=== PATIENT | female | born 1955 | race Caucasian/White ===

== ENCOUNTER 2020-12-26 15:17 | Outpatient (REF) | payer MEDICARE, MEDICAID, SELFPAY ==
--- NOTE | ~2020-12-26 | XR_ITS ---
EXAMINATION: BILATERAL KNEE X-RAY CLINICAL INFORMATION: Pain COMPARISON: None TECHNIQUE: 3 views of each knee FINDINGS: Left: Bone alignment is normal. No fracture or dislocation is seen. There is arthritis at the patellofemoral and femoral tibial joints with joint space narrowing and osteophyte formation. There is no joint effusion. Right: Bone alignment is normal. No fracture or dislocation is seen. There is arthritis at the lateral femoral tibial and patellofemoral joints with joint space narrowing and osteophyte formation. There is no joint effusion. XR/XR knee RT 3V IMPRESSION: Bilateral arthritis.
--- NOTE | ~2020-12-26 | XR_ITS ---
EXAMINATION: BILATERAL KNEE X-RAY CLINICAL INFORMATION: Pain COMPARISON: None TECHNIQUE: 3 views of each knee FINDINGS: Left: Bone alignment is normal. No fracture or dislocation is seen. There is arthritis at the patellofemoral and femoral tibial joints with joint space narrowing and osteophyte formation. There is no joint effusion. Right: Bone alignment is normal. No fracture or dislocation is seen. There is arthritis at the lateral femoral tibial and patellofemoral joints with joint space narrowing and osteophyte formation. There is no joint effusion. XR/XR knee LT 3V IMPRESSION: Bilateral arthritis.
--- NOTE | ~2020-12-26 | XR_ITS ---
EXAMINATION: XR HIP, RIGHT CLINICAL INFORMATION: Pain COMPARISON: None TECHNIQUE: Two views of the right hip. FINDINGS: Bone alignment is normal. No fracture or dislocation is seen. There is moderate to severe arthritis of the right hip joint with joint space narrowing, osteophyte formation and subchondral cyst formation. Mild cortical thickening or buttressing of the medial femoral neck. Soft tissues are unremarkable. XR/XR hip RT min 2V IMPRESSION: Moderate to severe arthritis.
[2020-12-26 16:40] LABS: MANUAL DIFF FLAG NO
[2020-12-26 16:51] LABS: Basophils Absolute Auto 0.1 X10*3/uL (0.0-0.2); Basophils Percent Auto 0.6 % (0-2); Eosinophils Absolute Auto 0.1 X10*3/uL (0.0-0.4); Eosinophils Percent Auto 0.9 % (0-4); Hematocrit 44.8 % (37-47); Hemoglobin 14.7 g/dl (12.0-16.0); Imm Gran Abs Auto 0.02 X10*3/uL (0.00-0.03); Imm Gran Pct Auto 0.2 % (0.0-0.4); Lymphocytes Absolute Auto 2.9 X10*3/uL (1.2-4.9); Lymphocytes Percent Auto 33.1 % (20-40); Mean Corpuscular HGB Conc 32.8 g/dl (31.0-35.0); Mean Corpuscular Hemoglobin 30.7 pg (27.0-33.0); Mean Corpuscular Volume 93.5 fL (80-98); Mean Platelet Volume 10.3 fL (9.4-12.3); Monocytes Absolute Auto 0.7 X10*3/uL (0.1-1.2); Monocytes Percent Auto 8.5 % (2-11); Neutrophils Absolute Auto 4.9 X10*3/uL (2.0-8.3); Neutrophils Percent Auto 56.7 % (45-73); Platelet Count 357 X10*3/uL (160-400); Red Blood Count 4.79 X10*6/uL (4.20-5.50); Red Cell Distribution Width 13.3 % (11.0-16.0); White Blood Count 8.7 X10*3/uL (4.8-10.8)
[2020-12-26 17:07] LABS: Alanine Aminotransferase 22 U/L (0-31); Albumin Level 4.6 g/dL (3.5-5.0); Alkaline Phosphatase 77 U/L (39-117); Anion Gap 16 (12-20); Aspartate Amino Transferase 26 U/L (5-31); Bilirubin Total 0.5 mg/dL (0.0-1.0); Blood Urea Nitrogen 17 mg/dL (9-16); C Reactive Protein 0.66 mg/dL (< or = 0.50); Calcium 9.3 mg/dL (8.4-10.2); Carbon Dioxide 29 mmol/L (22-29); Chloride 99 mmol/L (96-108); Estimated Glomerular Filt Rate > 60; Glucose Random 110 mg/dL (60-115); Rheumatoid Factor < 15.0 IU/mL (<15.0); Sodium 140 mmol/L (135-145); Total Protein 7.7 g/dL (6.5-8.0)
[2020-12-26 18:00] LABS: Erythrocyte Sedimentation Rate 16 MM/HR (0-20)
[2020-12-28 03:07] LABS: Lyme Abs Screen <0.90 index
[2021-01-01 12:18] LABS: Cyclic Citrullinated Peptide <16 UNITS
[2021-01-02 11:52] LABS: Vitamin D 25-OH, D2 53 ng/mL; Vitamin D 25-OH, D3 12 ng/mL; Vitamin D 25-OH, Total 65 ng/mL (30-100)
== END 2020-12-26 15:18 | disposition home or self-care (01) ==
LOC: HO.LAB 15:17
PROVIDERS: PCP Internal Medicine; Referring Provider Internal Medicine; Visit Provider Student in an Organized Health Care Education/Training Program
DX: M25.50 Pain in unspecified joint (principal)
CPT/HCPCS: 36415; 73502; 73562; 80053; 82306; 85025; 85652; 86140; 86200; 86431; 86618; 99202

== ENCOUNTER → 2021-01-28 12:36 | Outpatient (BNVA) | payer MEDICARE, MEDICAID, SELFPAY | PROVIDERS: Visit Provider Student in an Organized Health Care Education/Training Program | DX: M25.50 Pain in unspecified joint (principal); M16.11 Unilateral primary osteoarthritis, right hip | CPT/HCPCS: 99212 ==

== ENCOUNTER 2021-02-05 08:00 | Outpatient (REF) | payer MEDICARE, SELFPAY ==
--- NOTE | ~2021-02-05 | XR_ITS ---
EXAMINATION: XR PELVIS CLINICAL INFORMATION: Hip pain COMPARISON: December 26, 2020 TECHNIQUE: AP view of the pelvis. FINDINGS: There is no evidence of acute fracture or diastases of the pelvis. No evidence of sacroiliac joint widening or fusion. No destructive bony lesions are evident. There is severe degenerative joint disease of the right hip with loss of the hip joint space superiorly with marginal sclerosis and subchondral cyst formation. There is cortical thickening seen about the medial aspect of the right femoral neck. There is mild joint space narrowing involving the left hip. XR/XR pelvis 1-2V IMPRESSION: No evidence of acute fracture or diastases of the pelvis. Severe degenerative joint disease involving the right hip.
== END 2021-02-05 08:01 | disposition home or self-care (01) ==
LOC: HO.HOSX 08:00
PROVIDERS: Visit Provider Orthopaedic Surgery
DX: M16.11 Unilateral primary osteoarthritis, right hip (principal); M25.551 Pain in right hip; J44.9 Chronic obstructive pulmonary disease, unspecified; I26.99 Other pulmonary embolism without acute cor pulmonale; I82.409 Acute embolism and thrombosis of unspecified deep veins of unspecified lower extremity
CPT/HCPCS: 72170; 99202

== ENCOUNTER → 2021-04-27 11:01 | Outpatient (BNVA) | payer MEDICARE, MEDICAID, SELFPAY | PROVIDERS: PCP Internal Medicine; Visit Provider Orthopaedic Surgery | DX: Z01.812 Encounter for preprocedural laboratory examination (principal); Z01.810 Encounter for preprocedural cardiovascular examination ==

== ENCOUNTER → 2021-05-28 11:26 | Outpatient (BNVA) | payer MEDICARE, MEDICAID, SELFPAY | PROVIDERS: PCP Internal Medicine; Visit Provider Physician Assistant | DX: Z01.818 Encounter for other preprocedural examination (principal); M16.11 Unilateral primary osteoarthritis, right hip; M81.0 Age-related osteoporosis without current pathological fracture; E78.00 Pure hypercholesterolemia, unspecified; I10 Essential (primary) hypertension; F11.99 Opioid use, unspecified with unspecified opioid-induced disorder; Z99.81 Dependence on supplemental oxygen; Z88.8 Allergy status to other drugs, medicaments and biological substances; Z87.891 Personal history of nicotine dependence | CPT/HCPCS: 99212 ==

== ENCOUNTER 2021-06-02 10:55 | Inpatient (IN) | payer MEDICARE, MEDICAID, SELFPAY ==
--- NOTE | 2021-05-05 14:26 | ECG_ITS ---
Test Reason : PREOP Blood Pressure : / mmHG Vent. Rate : 073 BPM Atrial Rate : 073 BPM P-R Int : 134 ms QRS Dur : 096 ms QT Int : 404 ms P-R-T Axes : 050 008 039 degrees QTc Int : 445 ms Normal sinus rhythm Low voltage QRS Borderline ECG No previous ECGs available Referred By: Benito Felton Electronically Signed By:Ash Trujillo
[2021-05-05 14:48] LABS: MANUAL DIFF FLAG NO
[2021-05-05 14:52] LABS: Basophils Absolute Auto 0.1 X10*3/uL (0.0-0.2); Basophils Percent Auto 0.8 % (0-2); Eosinophils Absolute Auto 0.1 X10*3/uL (0.0-0.4); Eosinophils Percent Auto 1.2 % (0-4); Hematocrit 43.2 % (37-47); Hemoglobin 13.7 g/dl (12.0-16.0); Imm Gran Abs Auto 0.02 X10*3/uL (0.00-0.03); Imm Gran Pct Auto 0.3 % (0.0-0.4); Lymphocytes Absolute Auto 2.2 X10*3/uL (1.2-4.9); Lymphocytes Percent Auto 29.7 % (20-40); Mean Corpuscular HGB Conc 31.7 g/dl (31.0-35.0); Mean Corpuscular Hemoglobin 30.2 pg (27.0-33.0); Mean Corpuscular Volume 95.4 fL (80-98); Mean Platelet Volume 9.7 fL (9.4-12.3); Monocytes Absolute Auto 0.8 X10*3/uL (0.1-1.2); Monocytes Percent Auto 10.6 % (2-11); Neutrophils Absolute Auto 4.2 X10*3/uL (2.0-8.3); Neutrophils Percent Auto 57.4 % (45-73); Platelet Count 321 X10*3/uL (160-400); Red Blood Count 4.53 X10*6/uL (4.20-5.50); Red Cell Distribution Width 13.8 % (11.0-16.0); White Blood Count 7.3 X10*3/uL (4.8-10.8)
[2021-05-05 15:40] LABS: Anion Gap 14 (12-20); Blood Urea Nitrogen 17 mg/dL (9-16); Calcium 9.6 mg/dL (8.4-10.2); Carbon Dioxide 31 mmol/L (22-29); Chloride 99 mmol/L (96-108); Estimated Glomerular Filt Rate > 60; Glucose Random 101 mg/dL (60-115); Potassium 4.1 mmol/L (3.3-5.1); Sodium 140 mmol/L (135-145)
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
[2021-05-26 11:47] VITALS: BP 134/71; PULSE 78; RESP 16; O2SAT 94; BMI 36.6
[2021-05-26 14:20] LABS: MRSA Nasal PCR NEGATIVE (Negative); SA Nasal PCR NEGATIVE (Negative)
[2021-06-02] VITALS (10 sets, daily range): BP systolic 88–147; BP diastolic 48–71; PULSE 66–100; RESP 16–20; TEMP 36.4–36.7; O2SAT 93–100
--- NOTE | ~2021-06-02 | XR_ITS ---
EXAMINATION: XR PELVIS CLINICAL INFORMATION: Post right hip replacement COMPARISON: Previous x-ray January 2021 TECHNIQUE: AP view of the pelvis. FINDINGS: There is a new right hip replacement in satisfactory position. No fracture or dislocation is seen. There is mild arthritis at the left hip joint. Bones of the pelvis are unremarkable. Soft tissues are unremarkable. XR/XR pelvis 1-2V IMPRESSION: Satisfactory appearance of right hip replacement.
--- NOTE | ~2021-06-02 | XR_ITS ---
EXAMINATION: XR HIP, RIGHT WITH PELVIS CLINICAL INFORMATION: Fall, trauma. History total hip arthroplasty. COMPARISON: Radiographs pelvis 06/02/2021 and 02/05/2021 TECHNIQUE: 2 views of the pelvis are obtained along with 3 views right hip in AP and crosstable lateral x2 projections. FINDINGS: There has been prior right hip arthroplasty. The hardware is intact and unchanged in alignment. There is no fracture or dislocation or destructive process. Small short linear ossific density medial side proximal right femur was present on prior radiograph 06/02/2021. The SI joints and pubis show no diastases. The bony pelvis appears intact with no fracture. There are degenerative changes again present left hip with joint narrowing and mild subchondral sclerosis and spurring. XR/XR hip RT w PEL1V IMPRESSION: 1. No fracture or dislocation. 2. Postsurgical changes right hip, stable.
[2021-06-02 11:20] LABS: Prothrombin Time 11.7 SEC (9.9-13.0)
[2021-06-02 11:31] LABS: COVID-19 Test Negative (Negative)
[2021-06-02] MEDS: Lactated Ringers 1,000 ML 100 ML IVCONT (11:52)
--- NOTE | 2021-06-02 12:23 | MHC.SHP ---
Pre-Procedural Eval Section A Date of Service: 06/02/21 The patient is an INPATIENT: No Changes since office visit: Yes Patient answered all questions; No Cold of Flu in the past 2 weeks, No New Medical Problems and No Changes in Medication The History & Physical has been completed within 30 days and I have reviewed it.: Yes Section B Chief Complaint: Right total hip arthroplasty Allergies: Allergies Allergy/AdvReac Type Severity Reaction Status Date / Time adhesive tape Allergy Blister Verified 06/02/21 10:58 Plan I have reviewed the history and physical and performed a pertinent physical examination on my patient. No changes have occurred unless specified.
--- NOTE | 2021-06-02 14:37 | PM.OP ---
Brief Operative Note Date of Service: 06/02/21 Pre-op diagnosis: right hip OA Post-op diagnosis: same Procedure: Right MEGAN Implants: Jose F trident2 # 52 with 20 deg liner Jose F accolade2 #4 132 deg with +0 36 ceramic head Surgeon: Benito Felton MD Anesthesia: spinal Was an Propulsion Engineer used for this Procedure?: Yes Propulsion Engineer: Aj Richmond Estimated blood loss (mL): 200 IV fluids (mL): 1,000 Pathology: other Condition: stable Disposition: PACU
[2021-06-02] MEDS: Dextrose 5 % and 0.45 % NaCl 1,000 ML 80 ML IVCONT (15:41)
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
[2021-06-02] MEDS: oxyCODONE HCl Immed Release 5 MG TABLET 10 MG PO (17:12)
[2021-06-02] MEDS: HYDROmorphone HCl 0.5 MG/0.5 ML SYRINGE 0.25 MG IVPUSH ×2 (18:43→23:17)
[2021-06-02] MEDS: Warfarin Sodium 5 MG TABLET PO (18:43)
[2021-06-02] MEDS: ceFAZolin Sodium/Dextrose,Iso 2 GM/50 ML PIGGYBACK IV (19:21)
[2021-06-02] MEDS: Buprenorphine/Naloxone 8/2 mg FILM 1 FILM SUBLINGUAL (20:41)
[2021-06-02] MEDS: ALPRAZolam 0.5 MG TABLET 2 MG PO (20:41)
[2021-06-02] MEDS: Celecoxib 200 MG CAPSULE PO (20:41)
[2021-06-02] MEDS: Docusate Sodium 100 MG CAPSULE PO (20:41)
[2021-06-02] MEDS: oxyCODONE HCl ER 10 MG TAB.ER.12H PO (20:41)
[2021-06-03] VITALS (9 sets, daily range): BP systolic 100–146; BP diastolic 58–86; PULSE 63–100; RESP 16–19; TEMP 36.2–37.6; O2SAT 92–97
[2021-06-03] MEDS: HYDROmorphone HCl 0.5 MG/0.5 ML SYRINGE 0.25 MG IVPUSH ×2 (03:12→07:17)
[2021-06-03] MEDS: Dextrose 5 % and 0.45 % NaCl 1,000 ML 80 ML IVCONT (04:36)
[2021-06-03] MEDS: oxyCODONE HCl Immed Release 5 MG TABLET 10 MG PO ×3 (05:51→15:07)
[2021-06-03 07:18] LABS: MANUAL DIFF FLAG NO
--- NOTE | 2021-06-03 07:24 | PM.PNORT ---
Subjective Subjective Date of Service: 06/03/21 Interval history: POD 1 RT MEGAN No overnight events, resting in bed, has been out of bed with PT Denies cp, sob, palpitations. No concerns Physical Exam Vital Signs: Vital Signs: Last Vital Signs Temp 98.2 F 06/03/21 03:22 Pulse 93 06/03/21 03:22 Resp 18 06/03/21 03:22 BP 117/61 06/03/21 03:22 Pulse Ox 97 06/03/21 03:22 Body Mass Index 36.6 Const: General: cooperative, healthy appearing and no acute distress Resp: Effort & Inspection: normal respiratory effort and able to speak in complete sentences Cardio: Rate: regular rate Peripheral pulses: Peripheral pulses 2+ throughout GI: Palpation (GI): Soft to palpation Skin: General skin exam: no rashes or lesions noted Extrem: Other: bandage clean dry and intact. No erythema or effusion. Calf supple nontender. Neurovascularly intact. Procedures Date of Service Date of Service: 06/03/21 Progress Note: A&P Assessment and plan (1) History of total right hip replacement: Status: Acute Assessment and Plan: Continue pain mgmnt Resume coumadin begin PT for RT MEGAN Dispo planning-Pending PT eval, pain mgmnt Fall Risk Details Current Medications: Current Medications Generic Name Dose Route Start Last Admin Trade Name Erlinq PRN Reason Stop Dose Admin Acetaminophen 650 mg 06/02/21 16:30 Acetaminophen 325 Mg Tablet PO Q6H PRN Pain, Mild (Pain Scale 1-3) Albuterol Sulfate 2 puff 06/02/21 17:43 Albuterol Sulfate 90 Mcg 8 Gm Inhaler INHALE Q4H PRN Shortness Of Breath Alprazolam 2 mg 06/02/21 21:00 06/02/21 20:41 Alprazolam 0.5 Mg Tablet PO 2 mg BEDTIME SID Administration Buprenorphine/Naloxone 1 film 06/02/21 21:00 06/02/21 20:41 Buprenorphine/Naloxone 8/2 Mg Film SUBLINGUAL 1 film BID SID Administration Celecoxib 200 mg 06/02/21 21:00 06/02/21 20:41 Celecoxib 200 Mg Capsule PO 200 mg BID SID Administration Docusate Sodium 100 mg 06/02/21 21:00 06/02/21 20:41 Docusate Sodium 100 Mg Capsule PO 100 mg BID SID Administration Hydromorphone HCl 0.25 mg 06/02/21 16:30 06/03/21 03:12 Hydromorphone Hcl 0.5 Mg/0.5 Ml Syringe IVPUSH 0.25 mg Q4H PRN Administration Pain, Severe (Pain Scale 7-10) Protocol Dextrose/Sodium Chloride 1,000 mls @ 80 mls/hr 06/02/21 15:37 06/03/21 04:36 D51/2ns IVCONT 80 mls/hr .[id number] SID Administration Niacin 1,000 mg 06/03/21 09:00 Niacin Er 250 Mg Tablet.Er PO DAILY [facility] Ondansetron HCl 4 mg 06/02/21 16:30 Ondansetron Hcl 4 Mg/2 Ml Vial IVPUSH Q8H PRN Nausea and Vomiting Oxycodone HCl 10 mg 06/02/21 16:30 06/03/21 05:51 Oxycodone Hcl Immed Release 5 Mg Tablet PO 10 mg Q4H PRN Administration Pain, Moderate (Pain Scale 4-6 Oxycodone HCl 10 mg 06/02/21 21:00 06/02/21 20:41 Oxycodone Hcl Er 10 Mg Tab.Er.12h PO 10 mg BID SID Administration Sodium Chloride 3 ml 06/02/21 16:30 06/03/21 00:38 0.9 % Sodium Chloride Flush 3 Ml Syringe IVFLUSH Not Given QSHIFT [facility] Tiotropium [place] 1 puff 06/03/21 08:00 Tiotropium [place] 18 Mcg Cap.W.Dev INHALE RDAILY [facility] Warfarin Sodium 5 mg 06/02/21 18:00 06/02/21 18:43 Warfarin Sodium 5 Mg Tablet PO 5 mg DAILY@1800 SID Administration Time Spent With Patient Time: Total time spent is greater than 50% in coordination of care (as documented) at patient's floor/unit and/or counseling patient: Time with patient: 15 - 24 minutes Quality Stroke Does the patient have a stroke diagnosis?: No VTE Prior VTE?: Yes VTE Risk Level:: Surgical - high VTE Device Contraindication: N/A - Device Ordered VTE Drug Contraindication: N/A - Med Ordered
[2021-06-03 07:28] LABS: Basophils Percent Auto 0.4 % (0-2); Eosinophils Absolute Auto 0.1 X10*3/uL (0.0-0.4); Eosinophils Percent Auto 0.9 % (0-4); Hematocrit 39.3 % (37-47); Hemoglobin 12.6 g/dl (12.0-16.0); Imm Gran Abs Auto 0.02 X10*3/uL (0.00-0.03); Imm Gran Pct Auto 0.2 % (0.0-0.4); Lymphocytes Absolute Auto 1.6 X10*3/uL (1.2-4.9); Lymphocytes Percent Auto 18.6 % (20-40); Mean Corpuscular HGB Conc 32.1 g/dl (31.0-35.0); Mean Corpuscular Hemoglobin 30.4 pg (27.0-33.0); Mean Corpuscular Volume 94.7 fL (80-98); Mean Platelet Volume 9.8 fL (9.4-12.3); Monocytes Absolute Auto 1.2 X10*3/uL (0.1-1.2); Monocytes Percent Auto 14.4 % (2-11); Neutrophils Absolute Auto 5.5 X10*3/uL (2.0-8.3); Neutrophils Percent Auto 65.5 % (45-73); Platelet Count 237 X10*3/uL (160-400); Red Blood Count 4.15 X10*6/uL (4.20-5.50); Red Cell Distribution Width 13.9 % (11.0-16.0); White Blood Count 8.4 X10*3/uL (4.8-10.8)
[2021-06-03 07:30] LABS: INTERNATIONAL NORM RATIO 1.1 (0.9-1.1); Prothrombin Time 12.7 SEC (9.9-13.0)
--- NOTE | 2021-06-03 07:35 | W.PM.OPN ---
Operative Note Operative Note Date of Service: 06/03/21 Narrative: Pre-op diagnosis: right hip OA Post-op diagnosis: same Procedure: Right MEGAN Implants: Jose F trident2 # 52 with 20 deg liner Topton accolade2 #4 132 deg with +0 36 ceramic head Surgeon: Benito Felton MD Anesthesia: spinal Was an Oral And Maxillofacial Pathologist used for this Procedure?: Yes Oral And Maxillofacial Pathologist: Aj Richmond Estimated blood loss (mL): 200 IV fluids (mL): 1,000 Pathology: other Condition: stable Disposition: PACU Procedure in detail: Patient was brought into the operating room and placed in the lateral decubitus position. All bony prominences were well padded and the limb was prepped and draped in standard sterile fashion. Time-out was called to identify proper site procedure proper surgeon IV antibiotics and 1 g of transaxemic acid were administered. I began by making a curvilinear incision over the posterolateral aspect of the greater trochanter. Dissection was taken down to the tensor fascia which was incised in line with the incision and a Charnley retractor was placed. Cautery was used to maintain hemostasis. The hip was internally rotated and the external rotators were identified. The vessels were cauterized and a full-thickness capsular/external rotator layer was developed starting just proximal to the piriformis. THis layer was tagged and a dull Hohmann retractor was placed underneath the neck in the hip was dislocated. A neck cut was made 1 cm proximal to the lesser trochanter and the head and neck were removed and measured on the back table. I then placed my anterior-posterior acetabular retractors and performed a labrectomy. The cup was I then sequentially reamed up to a size ___ and impacted a ____ at approximately 45 degrees of inclination and 25 degrees of version. I then placed a liner and turned my attention to the femur. I identified the piriformis insertion and used this as a starting point for my joseluisie cutter. The medius tendon was protected with a Hibs retractor. I then used a Charnley awl to identify the canal and a curved curette to remove the lateral bone. I then sequentially broached in the patient's natural version to a size ____ and placed my trial implants. Using a I took the hip through range of motion with a + I was very satisfied with the stability and length. Therefore removed all instrumentation copiously irrigated placed my final femoral implant. I again took the hip through range of motion and was satisfied with the stability and length and so my final femoral head was plaimpacted in place. I then irrigated for 3 minutes with iodine and placed 1 g of local TXA. I then performed a capsular closure with FiberWire, Amari's fascia with 0 Vicryl, subcuticular with 2-0 vicryl and skin with angela. Patient was placed into a sterile dressing. Radiographs were obtained at the completion of the case and I was satisfied with the component position. Patient was extubated brought to the recovery room in stable condition.
[2021-06-03 07:50] LABS: Anion Gap 12 (12-20); Blood Urea Nitrogen 14 mg/dL (9-16); Carbon Dioxide 31 mmol/L (22-29); Chloride 100 mmol/L (96-108); Creatinine Clr Calc Pharmacy 77.2; Estimated Glomerular Filt Rate > 60; Glucose Fasting 111 mg/dL (60-99); Sodium 139 mmol/L (135-145)
[2021-06-03] MEDS: Docusate Sodium 100 MG CAPSULE PO ×2 (09:05→20:11)
[2021-06-03] MEDS: oxyCODONE HCl ER 10 MG TAB.ER.12H PO ×2 (09:05→20:10)
[2021-06-03] MEDS: Buprenorphine/Naloxone 8/2 mg FILM 1 FILM SUBLINGUAL ×2 (09:05→21:10)
[2021-06-03] MEDS: Celecoxib 200 MG CAPSULE PO ×2 (09:05→20:10)
[2021-06-03] MEDS: Acetaminophen 325 MG TABLET 650 MG PO (09:44)
--- NOTE | 2021-06-03 09:52 | HO.POSTANES ---
Post Anesthesia Evaluation Post Anesthesia Evaluation Vital Signs: Vital Signs Temp Pulse Resp BP Pulse Ox 06/03/21 08:42 63 146/86 H 93 06/03/21 08:00 98.0 F 63 19 146/86 H 93 06/03/21 03:22 98.2 F 93 18 117/61 97 06/03/21 00:00 99.7 F 90 16 124/58 L 97 Anesthesia: Spinal and Nerve Block (Right fascia iliaca block) Mental Status: Awake Pain Control: Satisfactory Nausea/Vomiting: None Hydration: Adequate Anesthesia-Related Issues: No Anes. Related Issues
[2021-06-03] MEDS: Enoxaparin Sodium 40 MG/0.4 ML SYRINGE SUBCUT (13:17)
--- NOTE | 2021-06-03 14:29 | MHC.CM.PN ---
IMM 06/03/21, EMR reviewed, pt admitted s/p right toal knee arthroplasty, pt is independednt w/care, pt does use a walker, 2l of O2 via nc at night and has railing in bathroom by toilet and shower, no home services and bedroom is on second floor. 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 Pt also completed HCP w/CM, pt given original w/2 copies, copy uploaded to [employer] and placed in chart. D/C Plan: STR- [facility], [facility] for BLS transport PCP: Domingo Bliss HCP: Ramses Gu Sr (spouse) [phone] Alternate: Ramses Gu Jr (son) [phone] [employer] Vaccine: Oct/Nov 2020
--- NOTE | 2021-06-03 14:52 | PC.NURSE ---
0800 getting OOB with PT and fell to floor. assisted up . MD notified. xrays ordered and done. No adverse consequences noted.
[2021-06-03] MEDS: Warfarin Sodium 5 MG TABLET PO (16:29)
[2021-06-03] MEDS: 0.9 % Sodium Chloride Flush 3 ML SYRINGE IVFLUSH (16:30)
[2021-06-03] MEDS: ALPRAZolam 0.5 MG TABLET 2 MG PO (20:10)
--- NOTE | 2021-06-03 22:11 | PC.NURSE ---
2100; patient is on suboxone 8/2 mg, 1 film sublingual bid. Patient took only half of the film, refused the second half of the film. This RN spoke to pharmacy, per pharmacy MD will need to place a new order in the morning. This RN wasted the second half of the film with another RN, Galina and documented the waste in the pyxis with second RN. Pharmacy made aware.
--- NOTE | 2021-06-03 22:18 | PC.NURSE ---
Patient is a high fall risk, patient had a fall in the morning of 06/03 while working with PT. A telesitter camera was placed for safety, patient is now refusing the telesitter camera, reporting it is violating patient's privacy. Educated patient on importance and use of camera for high fall risk. Patient is alert and oriented x3, all other high fall risk in place. Bed alarm on and functioning, high risk band on patient, red socks on patient. Patient educated to ring for assistance, patient verbalizes understanding. Nursing processing talc and borate supervisor made aware patient is refusing camera.
[2021-06-04] MEDS: oxyCODONE HCl Immed Release 5 MG TABLET 10 MG PO ×2 (01:14→07:35)
[2021-06-04] MEDS: Dextrose 5 % and 0.45 % NaCl 1,000 ML 80 ML IVCONT (01:17)
[2021-06-04 03:38] VITALS: BP 107/60; PULSE 71; RESP 16; TEMP 36.2; O2SAT 96
[2021-06-04] MEDS: oxyCODONE HCl ER 10 MG TAB.ER.12H PO (07:34)
[2021-06-04] MEDS: Celecoxib 200 MG CAPSULE PO (07:35)
[2021-06-04] MEDS: 0.9 % Sodium Chloride Flush 3 ML SYRINGE IVFLUSH (07:36)
[2021-06-04] MEDS: Docusate Sodium 100 MG CAPSULE PO (07:36)
[2021-06-04 07:39] VITALS: BP 133/56; PULSE 83; RESP 16; TEMP 36.8; O2SAT 93
[2021-06-04 07:48] LABS: MANUAL DIFF FLAG NO
[2021-06-04 07:59] LABS: Basophils Percent Auto 0.4 % (0-2); Eosinophils Absolute Auto 0.2 X10*3/uL (0.0-0.4); Eosinophils Percent Auto 1.5 % (0-4); Hematocrit 34.2 % (37-47); Hemoglobin 10.9 g/dl (12.0-16.0); Imm Gran Abs Auto 0.04 X10*3/uL (0.00-0.03); Imm Gran Pct Auto 0.4 % (0.0-0.4); Lymphocytes Absolute Auto 1.5 X10*3/uL (1.2-4.9); Lymphocytes Percent Auto 14.6 % (20-40); Mean Corpuscular HGB Conc 31.9 g/dl (31.0-35.0); Mean Corpuscular Hemoglobin 30.3 pg (27.0-33.0); Mean Platelet Volume 9.7 fL (9.4-12.3); Monocytes Absolute Auto 1.3 X10*3/uL (0.1-1.2); Monocytes Percent Auto 13.3 % (2-11); Neutrophils Absolute Auto 6.9 X10*3/uL (2.0-8.3); Neutrophils Percent Auto 69.8 % (45-73); Platelet Count 232 X10*3/uL (160-400); Red Cell Distribution Width 13.9 % (11.0-16.0); White Blood Count 9.9 X10*3/uL (4.8-10.8)
[2021-06-04 08:03] VITALS: PULSE 74; O2SAT 92
[2021-06-04 08:04] LABS: INTERNATIONAL NORM RATIO 1.4 (0.9-1.1); Prothrombin Time 15.9 SEC (9.9-13.0)
[2021-06-04 08:12] LABS: Anion Gap 10 (12-20); Blood Urea Nitrogen 16 mg/dL (9-16); Calcium 9.2 mg/dL (8.4-10.2); Carbon Dioxide 31 mmol/L (22-29); Chloride 99 mmol/L (96-108); Creatinine Clr Calc Pharmacy 72.3; Estimated Glomerular Filt Rate > 60; Glucose Fasting 131 mg/dL (60-99); Potassium 3.4 mmol/L (3.3-5.1); Sodium 137 mmol/L (135-145)
[2021-06-04 08:28] VITALS: BP 133/56; PULSE 83; O2SAT 93
[2021-06-04] MEDS: Buprenorphine/Naloxone 8/2 mg FILM 1 FILM SUBLINGUAL (08:56)
[2021-06-04] MEDS: HYDROmorphone HCl 0.5 MG/0.5 ML SYRINGE 0.25 MG IVPUSH (09:05)
--- NOTE | 2021-06-04 09:12 | MHC.CM.PN ---
PT DISCHARGING TO [facility], [facility] FOR BLS TRANSPORT.
--- NOTE | 2021-06-04 09:19 | P.PNIM_ITS ---
Subjective Subjective Date of Service: 06/04/21 Interval History: Seen in f/u for med consult, s/o hip arthroplasty POD2, no new issues, pain is controlled. Review of Systems no fever no sob pain in hip is manageable Physical Exam Vital Signs: Vital Signs: Last Vital Signs Temp 98.3 F 06/04/21 07:39 Pulse 83 06/04/21 08:28 Resp 16 06/04/21 07:39 BP 133/56 L 06/04/21 08:28 Pulse Ox 93 06/04/21 08:28 Body Mass Index 36.6 Constitutional Awake and Alert, No apparent distress HEENT Anicteric, Neck Supple, No lymphadenopathy Cardiovascular RRR, No M/R/G, S1 S2, No S3 S4, No pedal edema Respiratory Lungs clear, No respiratory distress Gastrointestinal Non tender, Non-distended Skin No rash, wound d/c/i No lymphadenopathy Neurological Alert & oriented x3 Psychological Appropriate affect Objective Data Current Medications Generic Name Dose Route Start Last Admin Trade Name Freq PRN Reason Stop Dose Admin Acetaminophen 650 mg 06/02/21 16:30 06/03/21 09:44 Acetaminophen 325 Mg Tablet PO 650 mg Q6H PRN Administration Pain, Mild (Pain Scale 1-3) Albuterol Sulfate 2 puff 06/02/21 17:43 Albuterol Sulfate 90 Mcg 8 Gm Inhaler INHALE Q4H PRN Shortness Of Breath Alprazolam 2 mg 06/02/21 21:00 06/03/21 20:10 Alprazolam 0.5 Mg Tablet PO 2 mg BEDTIME SID Administration Buprenorphine/Naloxone 1 film 06/02/21 21:00 06/04/21 08:56 Buprenorphine/Naloxone 8/2 Mg Film SUBLINGUAL 1 film BID SID Administration Celecoxib 200 mg 06/02/21 21:00 06/04/21 07:35 Celecoxib 200 Mg Capsule PO 200 mg BID SID Administration Docusate Sodium 100 mg 06/02/21 21:00 06/04/21 07:36 Docusate Sodium 100 Mg Capsule PO 100 mg BID SID Administration Enoxaparin Sodium 40 mg 06/03/21 13:00 06/03/21 13:17 Enoxaparin Sodium 40 Mg/0.4 Ml Syringe SUBCUT 40 mg Q24H SID Administration Hydromorphone HCl 0.25 mg 06/02/21 16:30 06/04/21 09:05 Hydromorphone Hcl 0.5 Mg/0.5 Ml Syringe IVPUSH 0.25 mg Q4H PRN Administration Pain, Severe (Pain Scale 7-10) Protocol Dextrose/Sodium Chloride 1,000 mls @ 80 mls/hr 06/02/21 15:37 06/04/21 05:08 D51/2ns IVCONT Not Given .[id number] [facility] Niacin 1,000 mg 06/03/21 09:00 06/04/21 07:36 Niacin Er 250 Mg Tablet.Er PO 1,000 mg DAILY SID Administration Ondansetron HCl 4 mg 06/02/21 16:30 Ondansetron Hcl 4 Mg/2 Ml Vial IVPUSH Q8H PRN Nausea and Vomiting Oxycodone HCl 10 mg 06/02/21 16:30 06/04/21 07:35 Oxycodone Hcl Immed Release 5 Mg Tablet PO 10 mg Q4H PRN Administration Pain, Moderate (Pain Scale 4-6 Oxycodone HCl 10 mg 06/02/21 21:00 06/04/21 07:34 Oxycodone Hcl Er 10 Mg Tab.Er.12h PO 10 mg BID SID Administration Sodium Chloride 3 ml 06/02/21 16:30 06/04/21 07:36 0.9 % Sodium Chloride Flush 3 Ml Syringe IVFLUSH 3 ml QSHIFT [facility] Administration Tiotropium [place] 1 puff 06/03/21 08:00 06/04/21 08:00 Tiotropium [place] 18 Mcg Cap.W.Dev INHALE 1 puff RDAILY [facility] Administration Warfarin Sodium 5 mg 06/03/21 16:00 06/03/21 16:29 Warfarin Sodium 5 Mg Tablet PO 5 mg DAILY@1600 [facility] Administration Labs CBC & Chem 7: 06/04/21 07:31 06/04/21 07:32 Labs: Laboratory Results - last 24 hr 06/04/21 06/04/21 06/04/21 07:31 07:32 07:32 MCV 95.0 MCH 30.3 MCHC 31.9 RDW 13.9 Plt Count 232 MPV 9.7 Immature Gran % (Auto) 0.4 Neut % (Auto) 69.8 Lymph % (Auto) 14.6 L [place] % (Auto) 13.3 H Eos % (Auto) 1.5 Baso % (Auto) 0.4 Lymph # (Auto) 1.5 [place] # (Auto) 1.3 H Eos # (Auto) 0.2 Baso # (Auto) 0.0 Abs Immat Gran (auto) 0.04 H Absolute Neuts (auto) 6.9 Absolute Nucleated RBC 0.000 Nucleated RBC % (auto) 0.0 PT 15.9 H D INR 1.4 H Anion Gap 10 L Estim Creat Clear Calc 72.3 Estimated GFR > 60 Fasting Glucose 131 H Calcium 9.2 Assessment and Plan (1) History of total right hip replacement: Status: Acute (2) COPD (chronic obstructive pulmonary disease): Status: Acute (3) DVT (deep venous thrombosis): Status: Acute (4) Oxygen dependent: Status: Acute (5) HTN (hypertension): Status: Acute Assessment and Plan: ? ? ? 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 history of osteoporosis and history of OA s/p elective Right MEGAN today 06/02 1/ h/o of DVT, PE and lung cancer makes her high risk, DVT prophy with coumadin, lovenox 2/ HTN--controlled, continue HCTZ 3/HlD--Simvastatin or equivalent statin 4/COPD, no exacerbation, continue bronchodilators, O2 at night, 5/ Takes Xanas 1 mg twice a day not 2 mg 6/s/p right MEGAN, management per surgery Will follow Quality Stroke Does the patient have a stroke diagnosis?: No VTE Prior VTE?: Yes VTE Risk Level:: Surgical - high VTE Device Contraindication: N/A - Device Ordered VTE Drug Contraindication: N/A - Med Ordered
[2021-06-04 11:23] VITALS: BP 108/54; PULSE 81; RESP 16; TEMP 36.7; O2SAT 95
--- NOTE | 2021-06-04 11:39 | PM.DS ---
DS: Providers Provider Date of Service: 06/04/21 Date of admission: 06/02/21 10:55 Primary care physician: Domingo Bliss DO, MD Consults: 06/02/21 16:30 Consult to Hospitalist Routine Consulting Provider: Hospitalist Reason For Exam: post op medica management DS: Diagnosis Discharge Diagnosis (1) History of total right hip replacement: Status: Acute (2) COPD (chronic obstructive pulmonary disease): Status: Acute (3) DVT (deep venous thrombosis): Status: Acute (4) Oxygen dependent: Status: Acute (5) HTN (hypertension): Status: Acute DS: Summary Hospital Course Hospital Course: The patient underwent a successful right total hip arthroplasty, was transferred to PACU and then to the floor to recover. During their stay, their vitals were stable, afebrile at 98.0. Labs were unremarkable, H/H 10.9/34.2 . POD 1 she was started on Lovenox for DVT ppx, they also received PT/OT services twice a day. Prior to discharge, their dressing was change, incision clean dry and intact, new Aquacel dressing applied and the plan was to be discharged to STR She should remain on lovenox until INR therapeutic range 2-3 once goal reached, d/c lovenox length of stay expected to be less than 30 days Time Spent with Patient Time attestation: Total time spent providing and/or coordinating discharge services: Discharge coordination time: Less than 30 minutes Quality: Stroke Does the patient have a stroke diagnosis?: No Physical Exam Vital Signs: Vital Signs: Last Vital Signs Temp 98.0 F 06/04/21 11:23 Pulse 81 06/04/21 11:23 Resp 16 06/04/21 11:23 BP 108/54 L 06/04/21 11:23 Pulse Ox 95 06/04/21 11:23 Body Mass Index 36.6 Extrem: Other: incision clean dry and intact. Cristian intact. No erythema or effusion. Calf supple nontender. Neurovascularly intact. DS: Data Data Completed and Pending Pending studies at discharge: Pending at discharge 06/02/21 14:23 Surgical [PTH] Routine Labs on day of discharge: Laboratory Results - last 24 hr 06/04/21 06/04/21 06/04/21 07:31 07:32 07:32 WBC 9.9 RBC 3.60 L Hgb 10.9 L Hct 34.2 L MCV 95.0 MCH 30.3 MCHC 31.9 RDW 13.9 Plt Count 232 MPV 9.7 Immature Gran % (Auto) 0.4 Neut % (Auto) 69.8 Lymph % (Auto) 14.6 L [place] % (Auto) 13.3 H Eos % (Auto) 1.5 Baso % (Auto) 0.4 Lymph # (Auto) 1.5 [place] # (Auto) 1.3 H Eos # (Auto) 0.2 Baso # (Auto) 0.0 Abs Immat Gran (auto) 0.04 H Absolute Neuts (auto) 6.9 Absolute Nucleated RBC 0.000 Nucleated RBC % (auto) 0.0 PT 15.9 H D INR 1.4 H Sodium 137 Potassium 3.4 Chloride 99 Carbon Dioxide 31 H Anion Gap 10 L BUN 16 Creatinine 0.78 Estim Creat Clear Calc 72.3 Estimated GFR > 60 Fasting Glucose 131 H Calcium 9.2 Discharge Plan Discharge Patient Disposition: er [facility] Discharge Diagnosis: RT MEGAN [facility] Aj Richmond PA-C [Physician Field Applications Specialist] - 2 Weeks (06/18/21 1:30 [facility] [place] Orthopedic Surgeons Aj Richmond PA-C) Discharge Medications: New oxycodone 10 mg tablet 10 mg PO Q4H PRN (Reason: Pain, Moderate (Pain Scale 4-6) 7 Days Qty: 42 RF: 0 enoxaparin 40 mg/0.4 mL Syringe 40 mg subcut Q24H 7 Days Qty: 2.8 RF: 0 acetaminophen 325 mg Tablet 650 mg PO Q6H PRN (Reason: Pain, Mild (Pain Scale 1-3)) 30 Days Qty: 240 RF: 0 Continued (DME) Commode See Rx Instructions .ROUTE .MEDSUPPLY Qty: 1 RF: 0 (DME) Shower Chair See Rx Instructions .ROUTE .MEDSUPPLY Qty: 1 RF: 0 (DME) walker Misc See Rx Instructions .MEDSUPPLY Qty: 1 RF: 0 niacin 500 mg Tablet 1,000 mg PO DAILY RF: 0 ergocalciferol (vitamin D2) 1,250 mcg (50,000 unit) capsule 1 cap PO QWEEK RF: 0 albuterol sulfate [ProAir HFA] 90 mcg/actuation Hfa Aerosol Inhaler 2 puff INHALATION Q4-6H PRN (Reason: Shortness Of Breath) RF: 0 docusate sodium [Dulcolax Stool Softener (dss)] 100 mg capsule 100 mg PO BID RF: 0 simvastatin 10 mg tablet 10 mg PO BEDTIME RF: 0 alprazolam [Xanax] 1 mg tablet 2 mg PO BEDTIME RF: 0 Spiriva with HandiHaler 18 mcg capsule, w/inhalation device 1 cap inhalation DAILY RF: 0 buprenorphine-naloxone [Suboxone] 8-2 mg film 1 film sublingual BID RF: 0 warfarin 5 mg tablet 5 mg PO DAILY RF: 0 Breo Ellipta 100-25 mcg/dose blister with device 1 inh inhalation DAILY RF: 0 alendronate [Fosamax] 70 mg tablet 70 mg PO QWEEK RF: 0 hydrochlorothiazide 25 mg tablet 25 mg PO DAILY RF: 0 Discharge Orders: Discharge Order (Routine); Ordered 06/04/21 Ordered By: Aj Richmond Diet: regular diet Activity on Discharge: Use cane or walker Stand Alone Forms: Patient Portal Discharge page Care Plan Goals: Restore function of joint Health Concerns: none Plan of Treatment: Physical Therapy Pain management DVT prophylaxis Assessment: Physical Therapy for Total hip arthroplasty: posterior precautions, gait training, ROM, strength Limit stair climbing DAILY INR DRAWS No showering, no tub bath-keep dressing clean, dry and intact No driving x6 weeks Continue Lovenox until INR therapeutic ( goal 2-3) -then d/c lovenox Follow up with [facility] [place] Orthopedics in 2 weeks
[2021-06-04] MEDS: Enoxaparin Sodium 40 MG/0.4 ML SYRINGE SUBCUT (13:59)
== END 2021-06-04 15:19 | disposition skilled nursing facility (03) | DRG 470 ==
LOC: HO.SSSA 11:09 → HO.S3 15:11
PROVIDERS: Nurse Practitioner; Physician Assistant; Admitting Provider Orthopaedic Surgery; PCP Internal Medicine; Visit Provider Orthopaedic Surgery
PROC: 0SR903A Replacement of Right Hip Joint with Ceramic Synthetic Substitute, Uncemented, Open Approach (ICD-10-PCS; CPT 27130; principal; 2021-06-02 12:30)
DX: M16.11 Unilateral primary osteoarthritis, right hip (principal); J44.9 Chronic obstructive pulmonary disease, unspecified; Z99.81 Dependence on supplemental oxygen; Z20.822 Contact with and (suspected) exposure to COVID-19; Z86.711 Personal history of pulmonary embolism; Z86.718 Personal history of other venous thrombosis and embolism; Z85.118 Personal history of other malignant neoplasm of bronchus and lung; Z87.891 Personal history of nicotine dependence; Z79.51 Long term (current) use of inhaled steroids; Z79.899 Other long term (current) drug therapy
CPT/HCPCS: 27130; 36415; 72170; 73502; 80048; 85025; 85610; 86850; 86900; 86901; 87635; 87640; 87641; 88304; 88311; 93005; 97110; 97116; 97163; 97166; 97530; C1776; J0131; J0690; J1170; J1650; J2250; J3010

== ENCOUNTER → 2021-06-18 13:18 | Outpatient (BNVA) | payer MEDICARE, MEDICAID, SELFPAY | PROVIDERS: PCP Internal Medicine; Visit Provider Physician Assistant | DX: Z47.1 Aftercare following joint replacement surgery (principal); Z96.641 Presence of right artificial hip joint | CPT/HCPCS: 99212 ==

== ENCOUNTER → 2021-07-23 10:02 | Outpatient (BNVA) | payer MEDICARE, MEDICAID, SELFPAY | PROVIDERS: Visit Provider Orthopaedic Surgery | DX: Z47.1 Aftercare following joint replacement surgery (principal); Z96.641 Presence of right artificial hip joint | CPT/HCPCS: 99212 ==

== ENCOUNTER 2021-09-03 12:12 | Outpatient (REF) | payer MEDICARE, MEDICAID, SELFPAY ==
--- NOTE | ~2021-09-03 | XR_ITS ---
EXAMINATION: PELVIS AND RIGHT HIP X-RAY CLINICAL INFORMATION: Pain. COMPARISON: Previous x-ray most recent June 2021 TECHNIQUE: AP view of the pelvis and crosstable lateral view of the right hip FINDINGS: There is a right hip replacement in satisfactory position. No fracture, dislocation or x-ray evidence. There is arthritis of the left hip joint with joint space narrowing and osteophyte formation. Bones of the pelvis are unremarkable. Soft tissues are unremarkable. XR/XR hip RT 1V IMPRESSION: Satisfactory appearance of right hip replacement.
--- NOTE | ~2021-09-03 | XR_ITS ---
EXAMINATION: PELVIS AND RIGHT HIP X-RAY CLINICAL INFORMATION: Pain. COMPARISON: Previous x-ray most recent June 2021 TECHNIQUE: AP view of the pelvis and crosstable lateral view of the right hip FINDINGS: There is a right hip replacement in satisfactory position. No fracture, dislocation or x-ray evidence. There is arthritis of the left hip joint with joint space narrowing and osteophyte formation. Bones of the pelvis are unremarkable. Soft tissues are unremarkable. XR/XR pelvis 1-2V IMPRESSION: Satisfactory appearance of right hip replacement.
== END 2021-09-03 12:13 | disposition home or self-care (01) ==
LOC: HO.HOSX 12:12
PROVIDERS: Visit Provider Orthopaedic Surgery
DX: Z47.1 Aftercare following joint replacement surgery (principal); M16.12 Unilateral primary osteoarthritis, left hip; Z96.641 Presence of right artificial hip joint
CPT/HCPCS: 72170; 73501; 99212

== ENCOUNTER 2022-12-06 09:27 | Outpatient (REF) | payer MEDICARE, MEDICAID, SELFPAY ==
--- NOTE | ~2022-12-06 | XR_ITS ---
EXAMINATION: XR PELVIS CLINICAL INFORMATION: Pain. COMPARISON: Radiographs dated 09/21/2021. TECHNIQUE: 2 AP views of the pelvis are submitted. FINDINGS: There is bony demineralization. There is an intact right hip total arthroplasty. There is marked osteoarthritic change of the left hip joint. There is flattening and subchondral sclerosis and cyst formation of the left femoral head. The sacroiliac joints are symmetric and well-maintained. The pubic symphysis is intact. There is no foreign body. XR/XR pelvis 1-2V IMPRESSION: 1. There is marked osteoarthritic change of the left hip joint. There is mild flattening of the left femoral head, which can be associated with avascular necrosis. 2. There is an intact right hip total arthroplasty.
== END 2022-12-06 09:28 | disposition home or self-care (01) ==
LOC: HO.HOSX 09:27
PROVIDERS: Visit Provider Orthopaedic Surgery
DX: Z96.641 Presence of right artificial hip joint (principal); Z90.2 Acquired absence of lung [part of]
CPT/HCPCS: 72170; 99212

== ENCOUNTER → 2023-02-10 13:06 | Outpatient (BNVA) | payer MEDICARE, MEDICAID, SELFPAY | PROVIDERS: PCP Internal Medicine; Visit Provider Physician Assistant | DX: Z01.818 Encounter for other preprocedural examination (principal); M16.12 Unilateral primary osteoarthritis, left hip; Z79.01 Long term (current) use of anticoagulants; Z99.81 Dependence on supplemental oxygen | CPT/HCPCS: 99212 ==

== ENCOUNTER 2023-02-15 07:46 | Inpatient (IN) | payer MEDICARE, MEDICAID, SELFPAY ==
[2023-02-07 12:25] VITALS: BP 125/71; PULSE 78; RESP 20; O2SAT 96; BMI 37.8
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
[2023-02-07 14:52] LABS: MRSA Nasal PCR NEGATIVE (Negative); SA Nasal PCR NEGATIVE (Negative)
[2023-02-15] VITALS (27 sets, daily range): BP systolic 118–156; BP diastolic 58–80; PULSE 73–97; RESP 14–20; TEMP 36.3–37; O2SAT 90–100; BMI 36.6
--- NOTE | ~2023-02-15 | XR_ITS ---
EXAMINATION: XR chest 1V CLINICAL INFORMATION: Reason for Exam chest pain COMPARISON: None TECHNIQUE: XR chest 1V Tubes and lines: None Lungs and pleura: There is opacification over the right lung base and right parahilar region suggest infiltrate and/or atelectasis and probably subpulmonic right pleural effusion. Heart and mediastinum: Widened mediastinum, this is exaggerated by AP technique.. Bones/soft tissue: Cortical irregularity of the right fifth rib likely an old fracture. XR/XR chest 1V IMPRESSION: * Opacification over the right lung base and right parahilar region suggest infiltrate and/or atelectasis and probably subpulmonic right pleural effusion. Clinical correlation and follow-up chest PA and lateral recommended. * Widened mediastinum exaggerated by AP technique. * Old right fifth rib fracture.
--- NOTE | ~2023-02-15 | XR_ITS ---
EXAMINATION: XR PELVIS CLINICAL INFORMATION: Status post left MEGAN. COMPARISON: None available. TECHNIQUE: AP view of the pelvis. FINDINGS: There are bilateral hip prosthesis. There is no periprosthetic fracture or loosening. No bony abnormality. XR/XR pelvis 1-2V IMPRESSION: Bilateral hip prosthesis. No periprosthetic fracture or loosening seen.
[2023-02-15 08:35] LABS: Hematocrit 41.1 % (37.0-47.0); Hemoglobin 13.4 g/dl (12.0-16.0)
[2023-02-15] MEDS: oxyCODONE HCl ER 10 MG TAB.ER.12H PO ×2 (08:36→20:05)
[2023-02-15] MEDS: vancomycin HCL 1,500 MG in 0.9 % Sodium Chloride 500 ML 333.33 MG IV ×2 (08:37→21:00)
[2023-02-15 08:47] LABS: Prothrombin Time 11.5 SEC (10.0-13.1)
[2023-02-15] MEDS: Albuterol Sulfate (0.083%) 2.5 MG/3 ML VIAL.NEB INHALE (08:49)
--- NOTE | 2023-02-15 09:49 | MHC.SHP ---
Pre-Procedural Eval Section A Date of Service: 02/15/23 The patient is an INPATIENT: No Changes since office visit: No Cold of Flu in the past 2 weeks, No New Medical Problems, No Changes in Medication and No Patient answered all questions The History & Physical has been completed within 30 days and I have reviewed it.: Yes Section B Chief Complaint: lt girish Allergies: Allergies Allergy/AdvReac Type Severity Reaction Status Date / Time adhesive tape Allergy Intermediate Blister Verified 02/10/23 13:21 Plan I have reviewed the history and physical and performed a pertinent physical examination on my patient. No changes have occurred unless specified. Time Spent With Patient Time: Total time managing care of this patient today ____ minutes.
--- NOTE | 2023-02-15 12:15 | PM.OP ---
Brief Operative Note Date of Service: 02/15/23 Pre-op diagnosis: Left hip OA Post-op diagnosis: same Procedure: Left MEGAN Implants: Elbridge Trident2 52 with lipped liner Elbridge Accolade2 127 deg #4 with -2.5 36 ceramic femoral head Surgeon: Benito Felton MD Anesthesia: GETA and local Was an Manager Acquisition used for this Procedure?: No Estimated blood loss (mL): 150 IV fluids (mL): 850 Pathology: other Condition: stable Disposition: PACU
[2023-02-15] MEDS: HYDROmorphone HCl 0.5 MG/0.5 ML SYRINGE IVPUSH ×4 (12:42→14:17)
[2023-02-15] MEDS: oxyCODONE HCl Immed Release 5 MG TABLET PO (12:42)
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
[2023-02-15] MEDS: Lactated Ringers 1,000 ML 100 ML IVCONT (15:45)
[2023-02-15] MEDS: HYDROmorphone HCl/NS 10 MG/50 ML PIGGYBACK IV (15:45)
[2023-02-15] MEDS: 0.9 % Sodium Chloride Flush 3 ML SYRINGE IVFLUSH (15:46)
[2023-02-15 17:23] LABS: Creatinine Clr Calc Pharmacy 69.4; Estimated Glomerular Filt Rate > 60
[2023-02-15] MEDS: Acetaminophen 325 MG TABLET 975 MG PO (17:46)
[2023-02-15] MEDS: oxyCODONE HCl Immed Release 5 MG TABLET 10 MG PO (17:46)
[2023-02-15] MEDS: ALPRAZolam 0.5 MG TABLET 1 MG PO (20:05)
[2023-02-15] MEDS: Docusate Sodium 100 MG CAPSULE PO (20:05)
[2023-02-15] MEDS: Atorvastatin Calcium 10 MG TABLET PO (20:05)
[2023-02-15] MEDS: Gabapentin 300 MG CAPSULE PO (20:05)
[2023-02-15] MEDS: Celecoxib 200 MG CAPSULE PO (20:05)
[2023-02-15] MEDS: Calcium Carbonate 750 MG TAB.CHEW PO (20:10)
[2023-02-15] MEDS: Buprenorphine/Naloxone 8/2 mg FILM 1 FILM SUBLINGUAL (21:06)
[2023-02-16] VITALS (20 sets, daily range): BP systolic 100–155; BP diastolic 56–78; PULSE 70–112; RESP 16–20; TEMP 36.4–37.4; O2SAT 92–99
[2023-02-16] MEDS: oxyCODONE HCl Immed Release 5 MG TABLET 10 MG PO ×3 (01:24→11:09)
[2023-02-16] MEDS: Acetaminophen 325 MG TABLET 975 MG PO (01:24)
[2023-02-16] MEDS: Lactated Ringers 1,000 ML 100 ML IVCONT ×3 (01:26→22:03)
[2023-02-16] MEDS: Calcium Carbonate 750 MG TAB.CHEW PO ×4 (03:47→16:39)
[2023-02-16 06:45] LABS: MANUAL DIFF FLAG NO
[2023-02-16 06:50] LABS: Basophils Percent Auto 0.6 % (0-2); Eosinophils Absolute Auto 0.1 X10*3/uL (0.0-0.4); Eosinophils Percent Auto 1.8 % (0-4); Hematocrit 34.8 % (37.0-47.0); Hemoglobin 11.1 g/dl (12.0-16.0); Imm Gran Abs Auto 0.03 X10*3/uL (0.00-0.03); Imm Gran Pct Auto 0.4 % (0.0-0.4); Lymphocytes Absolute Auto 1.3 X10*3/uL (1.2-4.9); Lymphocytes Percent Auto 18.7 % (20-40); Mean Corpuscular HGB Conc 31.9 g/dl (31.0-35.0); Mean Corpuscular Hemoglobin 30.7 pg (27.0-33.0); Mean Corpuscular Volume 96.4 fL (80.0-98.0); Mean Platelet Volume 10.9 fL (9.4-12.3); Monocytes Percent Auto 14.4 % (2-11); Neutrophils Absolute Auto 4.5 x10*3/uL (2.0-8.3); Neutrophils Percent Auto 64.1 % (45-73); Platelet Count 206 X10*3/uL (160-400); Red Blood Count 3.61 X10*6/uL (4.20-5.50); Red Cell Distribution Width 14.4 % (11.0-16.0); White Blood Count 7.1 X10*3/uL (4.8-10.8)
[2023-02-16 07:05] LABS: Anion Gap 9 (12-20); Blood Urea Nitrogen 15 mg/dL (9-16); Calcium 8.8 mg/dL (8.4-10.2); Carbon Dioxide 32 mmol/L (22-29); Chloride 103 mmol/L (96-108); Creatinine Clr Calc Pharmacy 68.6; Estimated Glomerular Filt Rate > 60; Glucose Fasting 115 mg/dL (60-99); Sodium 140 mmol/L (135-145)
[2023-02-16] MEDS: Buprenorphine/Naloxone 8/2 mg FILM 1 FILM SUBLINGUAL ×2 (07:08→20:45)
[2023-02-16 07:09] LABS: Prothrombin Time 11.8 SEC (10.0-13.1)
[2023-02-16] MEDS: ALPRAZolam 0.5 MG TABLET 1 MG PO ×2 (07:09→20:45)
[2023-02-16] MEDS: Celecoxib 200 MG CAPSULE PO ×2 (07:09→20:44)
[2023-02-16] MEDS: Docusate Sodium 100 MG CAPSULE PO ×2 (07:09→20:44)
[2023-02-16] MEDS: oxyCODONE HCl ER 10 MG TAB.ER.12H PO ×2 (07:09→20:44)
[2023-02-16] MEDS: Gabapentin 300 MG CAPSULE PO ×2 (07:09→20:45)
--- NOTE | 2023-02-16 07:45 | PM.PNORT ---
Subjective Subjective Date of Service: 02/16/23 Principal diagnosis: s/p L MEGAN Interval history: No overnight events. Pain controlled Physical Exam Vital Signs: Vital Signs: Last Vital Signs Temp 97.5 F 02/16/23 05:30 Pulse 70 02/16/23 06:00 Resp 18 02/16/23 06:00 BP 132/72 02/16/23 06:00 Pulse Ox 99 02/16/23 06:00 O2 Del Method Nasal Cannula 02/16/23 05:30 O2 Flow Rate 2 02/16/23 05:30 BMI result Body Mass Index 36.6 Extrem: Other: Dressing c/d/i Firing ehl/ta/gc SILT Procedures Date of Service Date of Service: 02/16/23 Progress Note: A&P Assessment and plan (1) History of total left hip replacement: Status: Acute Plan PT-WBAT with post hip precautions Pain control ( on suboxone at baseline) Coumadin bridging with lovenox Dispo planning Time Spent With Patient Time: Total time managing care of this patient today ____ minutes. Quality Stroke Does the patient have a stroke diagnosis?: No VTE Prior VTE?: Yes VTE Risk Level:: Medical - moderate - high VTE Device Contraindication: N/A - Device Ordered VTE Drug Contraindication: N/A - Med Ordered
--- NOTE | 2023-02-16 07:52 | HO.POSTANES ---
Post Anesthesia Evaluation Post Anesthesia Evaluation Vital Signs: Vital Signs Temp Pulse Resp BP Pulse Ox O2 Del Method O2 Flow Rate 02/16/23 07:47 98.1 F 74 18 100/57 L 99 Nasal Cannula 2 02/16/23 06:00 70 18 132/72 99 02/16/23 04:00 74 18 124/70 98 02/16/23 02:00 82 20 155/68 H 99 02/16/23 05:30 97.5 F 70 18 132/72 99 Nasal Cannula 2 02/16/23 03:55 97.6 F 76 18 124/70 99 Nasal Cannula 2 02/16/23 01:51 98 F 82 19 155/68 H 99 Nasal Cannula 2 02/15/23 23:32 98.6 F 84 18 125/70 98 Nasal Cannula 2 02/16/23 00:00 84 18 125/70 98 02/15/23 21:58 98.0 F 86 18 124/61 98 Nasal Cannula 2.0 02/15/23 22:00 86 18 124/61 98 Anesthesia: General Endotracheal-GETA Mental Status: Awake Pain Control: Satisfactory Nausea/Vomiting: None Hydration: Adequate Anesthesia-Related Issues: No Anes. Related Issues
[2023-02-16] MEDS: Fluticasone/Vilanterol 100/25 BLST.W.DEV 1 PUFF INHALE (08:32)
[2023-02-16] MEDS: Enoxaparin Sodium 40 MG/0.4 ML SYRINGE SUBCUT (11:12)
--- NOTE | 2023-02-16 12:56 | MHC.CM.PN ---
PATIENT LIVES WITH HER ELDERLY MOTHER. SHE USES A WALKER, A CHAIR LIFT, AND BEDSIDE COMMODE NO [facility] IN THE HOME AND IS AWARE THAT A REFERRAL WILL BE PLACED TO [facility] FOR HER DC NEEDS. HCP ON FILE AND VERIFIED. IMM 02/16 IN CHART. CASE MANAGEMENT FOLLOWING
[2023-02-16] MEDS: HYDROmorphone HCl/NS 10 MG/50 ML PIGGYBACK IV (14:24)
[2023-02-16] MEDS: Warfarin Sodium 5 MG TABLET PO (18:11)
[2023-02-16 20:01] LABS: Troponin-I High Sensitivity 3.3 ng/L (<3.5-17.0)
[2023-02-16] MEDS: Atorvastatin Calcium 10 MG TABLET PO (20:44)
[2023-02-16] MEDS: Omeprazole 40 MG CAPSULE.DR PO (20:44)
[2023-02-17] VITALS (18 sets, daily range): BP systolic 96–136; BP diastolic 45–79; PULSE 71–100; RESP 16–18; TEMP 36.2–37.1; O2SAT 93–100
[2023-02-17] MEDS: Calcium Carbonate 750 MG TAB.CHEW PO ×2 (04:03→14:17)
[2023-02-17 06:02] LABS: MANUAL DIFF FLAG NO
[2023-02-17 06:22] LABS: Basophils Percent Auto 0.4 % (0-2); Eosinophils Absolute Auto 0.2 X10*3/uL (0.0-0.4); Eosinophils Percent Auto 2.1 % (0-4); Hematocrit 29.2 % (37.0-47.0); Hemoglobin 9.4 g/dl (12.0-16.0); INTERNATIONAL NORM RATIO 1.3 (0.9-1.1); Imm Gran Abs Auto 0.04 X10*3/uL (0.00-0.03); Imm Gran Pct Auto 0.4 % (0.0-0.4); Lymphocytes Absolute Auto 1.2 X10*3/uL (1.2-4.9); Lymphocytes Percent Auto 13.1 % (20-40); Mean Corpuscular HGB Conc 32.2 g/dl (31.0-35.0); Mean Corpuscular Hemoglobin 30.6 pg (27.0-33.0); Mean Corpuscular Volume 95.1 fL (80.0-98.0); Mean Platelet Volume 10.4 fL (9.4-12.3); Monocytes Absolute Auto 1.3 X10*3/uL (0.1-1.2); Monocytes Percent Auto 14.3 % (2-11); Neutrophils Absolute Auto 6.5 x10*3/uL (2.0-8.3); Neutrophils Percent Auto 69.7 % (45-73); Platelet Count 207 X10*3/uL (160-400); Prothrombin Time 15.6 SEC (10.0-13.1); Red Blood Count 3.07 X10*6/uL (4.20-5.50); Red Cell Distribution Width 14.2 % (11.0-16.0); White Blood Count 9.4 X10*3/uL (4.8-10.8)
[2023-02-17 06:25] LABS: Anion Gap 10 (12-20); Blood Urea Nitrogen 10 mg/dL (9-16); Calcium 8.5 mg/dL (8.4-10.2); Carbon Dioxide 30 mmol/L (22-29); Chloride 102 mmol/L (96-108); Creatinine Clr Calc Pharmacy 74.1; Estimated Glomerular Filt Rate > 60; Glucose Fasting 123 mg/dL (60-99); Potassium 3.5 mmol/L (3.3-5.1); Sodium 138 mmol/L (135-145)
[2023-02-17] MEDS: Lactated Ringers 1,000 ML 100 ML IVCONT (06:57)
[2023-02-17] MEDS: Fluticasone/Vilanterol 100/25 BLST.W.DEV 1 PUFF INHALE (08:05)
[2023-02-17] MEDS: oxyCODONE HCl ER 10 MG TAB.ER.12H PO ×2 (08:09→20:51)
[2023-02-17] MEDS: Gabapentin 300 MG CAPSULE PO ×2 (08:10→20:51)
[2023-02-17] MEDS: ALPRAZolam 0.5 MG TABLET 1 MG PO ×2 (08:10→20:51)
[2023-02-17] MEDS: Docusate Sodium 100 MG CAPSULE PO ×2 (08:10→20:51)
[2023-02-17] MEDS: Celecoxib 200 MG CAPSULE PO ×2 (08:16→20:51)
--- NOTE | 2023-02-17 09:47 | P.PNOP_ITS ---
Subjective Subjective Date of Service: 02/17/23 Principal diagnosis: s/p L MEGAN Interval history: POD 2 s/p LT MEGAN No overnight events. 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 Quality Stroke Does the patient have a stroke diagnosis?: No VTE Prior VTE?: Yes VTE Risk Level:: Medical - moderate - high VTE Device Contraindication: N/A - Device Ordered VTE Drug Contraindication: N/A - Med Ordered
[2023-02-17] MEDS: Buprenorphine/Naloxone 8/2 mg FILM 1 FILM SUBLINGUAL ×2 (10:11→20:52)
[2023-02-17] MEDS: Enoxaparin Sodium 40 MG/0.4 ML SYRINGE SUBCUT (10:11)
[2023-02-17] MEDS: HYDROmorphone HCl 0.5 MG/0.5 ML SYRINGE IVPUSH (10:24)
[2023-02-17] MEDS: Omeprazole 20 MG CAPSULE.DR PO (16:14)
[2023-02-17] MEDS: Warfarin Sodium 5 MG TABLET PO (17:40)
[2023-02-17] MEDS: HYDROmorphone HCl/NS 10 MG/50 ML PIGGYBACK IV (20:11)
[2023-02-17] MEDS: Acetaminophen 325 MG TABLET 975 MG PO (20:16)
[2023-02-17] MEDS: Atorvastatin Calcium 10 MG TABLET PO (20:51)
--- NOTE | 2023-02-17 21:02 | PM.EVENT ---
Event Note Date of Service: 02/17/23 Event Note: Follow-up for 67-year-old female patient admitted to the hospital s/p right hip MEGAN POD 2. Patient states her right hip and leg pain is currently reasonably controlled. Patient has a history of DVT/PE. Coumadin has been resumed with INR today subtherapeutic at 1.3. Continue Lovenox until INR therapeutic between 2.0-3.0. Patient likely to be discharged to home tomorrow and knows she will likely have to continue Lovenox for another day or 2 before her INR becomes therapeutic. Patient states she already has some Lovenox at home and plans to be discharged on VNA services. Patient otherwise has no acute medical concerns at this time. Time Spent With Patient Time: Total time managing care of this patient today ____ minutes.
[2023-02-18] VITALS (9 sets, daily range): BP systolic 96–111; BP diastolic 51–63; PULSE 59–74; RESP 16–18; TEMP 36.1–36.5; O2SAT 96–100
[2023-02-18] MEDS: Omeprazole 20 MG CAPSULE.DR PO (06:11)
[2023-02-18 06:47] LABS: MANUAL DIFF FLAG NO
[2023-02-18 06:54] LABS: Basophils Percent Auto 0.4 % (0-2); Eosinophils Absolute Auto 0.3 X10*3/uL (0.0-0.4); Eosinophils Percent Auto 3.9 % (0-4); Hematocrit 31.8 % (37.0-47.0); Imm Gran Abs Auto 0.03 X10*3/uL (0.00-0.03); Imm Gran Pct Auto 0.4 % (0.0-0.4); Lymphocytes Absolute Auto 1.7 X10*3/uL (1.2-4.9); Lymphocytes Percent Auto 19.8 % (20-40); Mean Corpuscular HGB Conc 31.4 g/dl (31.0-35.0); Mean Corpuscular Hemoglobin 30.9 pg (27.0-33.0); Mean Corpuscular Volume 98.1 fL (80.0-98.0); Mean Platelet Volume 10.8 fL (9.4-12.3); Monocytes Percent Auto 11.3 % (2-11); Neutrophils Absolute Auto 5.5 x10*3/uL (2.0-8.3); Neutrophils Percent Auto 64.2 % (45-73); Platelet Count 197 X10*3/uL (160-400); Red Blood Count 3.24 X10*6/uL (4.20-5.50); Red Cell Distribution Width 14.3 % (11.0-16.0); White Blood Count 8.6 X10*3/uL (4.8-10.8)
[2023-02-18 06:58] LABS: INTERNATIONAL NORM RATIO 1.3 (0.9-1.1); Prothrombin Time 15.2 SEC (10.0-13.1)
[2023-02-18 07:09] LABS: Anion Gap 13 (12-20); Blood Urea Nitrogen 14 mg/dL (9-16); Calcium 8.6 mg/dL (8.4-10.2); Carbon Dioxide 29 mmol/L (22-29); Chloride 103 mmol/L (96-108); Creatinine Clr Calc Pharmacy 66.1; Estimated Glomerular Filt Rate > 60; Glucose Fasting 104 mg/dL (60-99); Potassium 3.7 mmol/L (3.3-5.1); Sodium 141 mmol/L (135-145)
[2023-02-18] MEDS: 0.9 % Sodium Chloride Flush 3 ML SYRINGE IVFLUSH (07:28)
[2023-02-18] MEDS: Celecoxib 200 MG CAPSULE PO (07:29)
[2023-02-18] MEDS: ALPRAZolam 0.5 MG TABLET 1 MG PO (07:29)
[2023-02-18] MEDS: oxyCODONE HCl Immed Release 5 MG TABLET 10 MG PO (07:29)
[2023-02-18] MEDS: Gabapentin 300 MG CAPSULE PO (07:29)
[2023-02-18] MEDS: oxyCODONE HCl ER 10 MG TAB.ER.12H PO (07:29)
[2023-02-18] MEDS: Buprenorphine/Naloxone 8/2 mg FILM 1 FILM SUBLINGUAL (07:29)
[2023-02-18] MEDS: Docusate Sodium 100 MG CAPSULE PO (07:29)
[2023-02-18] MEDS: Fluticasone/Vilanterol 100/25 BLST.W.DEV 1 PUFF INHALE (08:13)
--- NOTE | 2023-02-18 08:19 | PM.DS ---
DS: Providers Provider Date of Service: 02/18/23 Date of admission: 02/15/23 07:46 Primary care physician: Domingo Bliss DO, MD Consults: 02/15/23 14:54 Consult to Hospitalist Routine Comment: Consulting Provider: Hospitalist Reason For Exam: Routine medical management DS: Diagnosis Discharge Diagnosis (1) History of total left hip replacement: Status: Acute DS: Summary Hospital Course Hospital Course: The patient underwent a successful Left total hip arthroplasty on 02/15/23, was transferred to PACU and then to the floor to recover. During their stay, their vitals were stable, afebrile at 97.7. Labs were unremarkable, H/H 10.0/31.8. POD 1 she was started on Lovenox for DVT ppx until her INR becomes therapeutic, goal 2-3, with her coumadin dose. She also received Physical Therapy services twice a day. Physical therapy should include gait training, strength and posterior precautions are in place. Prior to discharge, herdressing was changed, incision clean dry and intact, new Aquacel dressing applied. The Aquacel dressing shoulder remain intact and dry at all times. Any concerns with the dressing, please contact orthopedic office. No showering. The plan is to be discharged home with VNA services Post op appt: 03/03/23 12:30 [facility] [place] Orthopedic Surgeons jA Richmond PA-C Time Spent with Patient Time attestation: Total time managing care of this patient today ____ minutes. Discharge coordination time: Less than 30 minutes Quality: Safe Use of Opioids Does Pt have an Active Cancer Diagnosis on the Problem List?: No Quality: Stroke Does the patient have a stroke diagnosis?: No Physical Exam Vital Signs: Vital Signs: Last Vital Signs Temp 97.7 F 02/18/23 08:00 Pulse 69 02/18/23 08:00 Resp 18 02/18/23 08:00 BP 97/51 L 02/18/23 08:00 Pulse Ox 100 02/18/23 08:00 O2 Del Method Nasal Cannula 02/18/23 08:00 O2 Flow Rate 2 02/18/23 08:00 BMI result Body Mass Index 36.6 Extrem: Other: Incision clean dry and intact. Firing ehl/ta/marissa SILT DS: Data Data Completed and Pending Completed studies during hospitalization [Text1]: Procedures Replacement of Right Hip Joint with Ceramic Synthetic Substitute, Uncemented, Open Approach (06/02/21) Pending studies at discharge: Pending at discharge 02/15/23 11:23 Surgical [PTH] Routine Labs on day of discharge: Laboratory Results - last 24 hr 02/18/23 02/18/23 02/18/23 06:01 06:01 06:01 WBC 8.6 RBC 3.24 L Hgb 10.0 L Hct 31.8 L MCV 98.1 H MCH 30.9 MCHC 31.4 RDW 14.3 Plt Count 197 MPV 10.8 Immature Gran % (Auto) 0.4 Neut % (Auto) 64.2 Lymph % (Auto) 19.8 L [place] % (Auto) 11.3 H Eos % (Auto) 3.9 Baso % (Auto) 0.4 Lymph # (Auto) 1.7 [place] # (Auto) 1.0 Eos # (Auto) 0.3 Baso # (Auto) 0.0 Abs Immat Gran (auto) 0.03 Absolute Neuts (auto) 5.5 Absolute Nucleated RBC 0.000 Nucleated RBC % (auto) 0.0 PT 15.2 H INR 1.3 H Sodium 141 Potassium 3.7 Chloride 103 Carbon Dioxide 29 Anion Gap 13 BUN 14 Creatinine 0.84 Estim Creat Clear Calc 66.1 Estimated GFR > 60 Fasting Glucose 104 H Calcium 8.6 Discharge Plan Discharge Anticipated Discharge Date/Time: 02/18/23 08:07 Patient Disposition: Home Health Service Discharge Diagnosis: s/p LT MEGAN Referrals: Aj Richmond PA-C [Physician Warehouse Man] - 2 Weeks (03/03/23 12:30 [facility] [place] Orthopedic Surgeons Aj Richmond PA-C) Discharge Medications: New celecoxib 200 mg Capsule 200 mg PO BID 30 Days Qty: 60 0RF oxycodone 10 mg tablet 10 mg PO Q4H PRN (Reason: Pain, Moderate(Pain Scale 4-6)) 7 Days Qty: 42 0RF Rx Instructions: Partial Fill upon patient request. acetaminophen 325 mg Tablet 650 mg PO Q6H PRN (Reason: Pain, Mild (Pain Scale 1-3)) 30 Days Qty: 240 0RF Continued (DME) Commode See Rx Instructions .ROUTE .MEDSUPPLY Qty: 1 0RF Rx Instructions: patient is room-confined and cannot and unable to get to toilet facilities (DME) Shower Chair See Rx Instructions .ROUTE .MEDSUPPLY Qty: 1 0RF Rx Instructions: As directed (DME) [place] [facility] [place]MEDSUPPLY Qty: 1 0RF Rx Instructions: Folding Front wheeled walker niacin 500 mg Tablet 1,000 mg PO DAILY albuterol sulfate [ProAir HFA] 90 mcg/actuation Hfa Aerosol Inhaler 2 puff INHALATION Q4-6H PRN (Reason: Shortness Of Breath) acetaminophen 325 mg Tablet 650 mg PO Q6H PRN (Reason: Pain, Mild (Pain Scale 1-3)) 30 Days Qty: 240 0RF alprazolam [Xanax] 1 mg Tablet 1 mg PO BID diphenhydramine-acetaminophen [Tylenol PM Extra Strength] 25-500 mg Tablet 1 tab PO BEDTIME docusate sodium [Dulcolax Stool Softener (dss)] 100 mg capsule 100 mg PO BID simvastatin 10 mg tablet 10 mg PO BEDTIME Spiriva with HandiHaler 18 mcg capsule, w/inhalation device 1 cap inhalation DAILY Rx Instructions: puncture 1 cap using device; one dose = 2 inhalations buprenorphine-naloxone [Suboxone] 8-2 mg film 1 film sublingual BID warfarin 5 mg tablet 5 mg PO DAILY Breo Ellipta 100-25 mcg/dose blister with device 1 inh inhalation DAILY alendronate [Fosamax] 70 mg tablet 70 mg PO QWEEK hydrochlorothiazide 25 mg tablet 25 mg PO DAILY enoxaparin 30 mg/0.3 mL syringe 30 mg subcut Q12H Discharge Orders: Discharge Order (Routine); Ordered 02/18/23 Ordered By: Aj Richmond Diet: Regular diet Activity on Discharge: Use cane or walker Stand Alone Forms: Patient Portal Discharge page Care Plan Goals: Restore function of joint Health Concerns: none Plan of Treatment: Physical Therapy Pain management DVT prophylaxis Assessment: Physical Therapy for Total hip arthroplasty: wbat, posterior precautions, gait training, ROM, strength Limit stair climbing No showering, no tub bath-keep dressing clean, dry and intact No driving x6 weeks Continue lovenox until INR therapeutic ( goal 2-3 ) Follow up with [facility] [place] Orthopedics in 2 weeks: 03/03/2312:30 [facility] [place] Orthopedic Aj Costello PA-C
--- NOTE | 2023-02-18 09:07 | MHC.CM.PN ---
PATIENT IS DC HOME TODAY WITH NEW [facility]. SHE REPORTS NEEDING BLS TRANSPORT HOME. CASE MANAGEMENT TO ARRANGE AND NOTIFY PATIENT AND RN WITH TIME. IMM 02/16 PREVIOUSLY COMPLETED
[2023-02-18] MEDS: Enoxaparin Sodium 40 MG/0.4 ML SYRINGE SUBCUT (09:25)
--- NOTE | 2023-02-18 09:26 | MHC.CM.PN ---
PATIENT REPORTS THAT DR DAVIS MONITORS HER INR DRAWS [facility] HAS BEEN DRAWING FOR HER SHE IS AWARE THAT [facility] WILL BE OFFERING RN, PT, AND OT SKILLS AND DOING HER INR CHECKS AMBULANCE TRANSPORT TO BE ARRANGED.
--- NOTE | 2023-02-18 10:28 | W.MHC.F2F ---
Service Date Service Date: 02/18/23 Encounter Date of encounter: 02/18/23 Reasons for Services Signs and symptoms assessed: left hip pain with ambulation, weakness, poor balance Reason for [facility]: other (daily INR check until INR therapeutic ) Reason for physical therapy: home safety and mobility, therapeutic exercises, gait/transfer training, ADL training and energy conservation Reason for occupational therapy: home safety and mobility, therapeutic exercises, restore joint function, gait/transfer training, ADL training and energy conservation Homebound: Leaving the home is medically contraindicated at this time without the asist of a device and/or another person due th the listed conditions above and below. Reason homebound: unsteady gait / fall risk, pain with ambulation, pain with transfers, poor balance / fall risk and unable to drive Homebound supporting statement: Pt. is considered home bound due to recent surgery. Unable to drive, poor balance, poor gait mechanics. Certification: Based on the above findings, I certify that this patient is confined to the home and needs intermittent [facility] care, physical therapy and/or speech therapy, or continues to need occupational therapy. The patient is under my care, and I have initiated the establishment of the plan of care. The patient will be followed by a physician who will periodically review the plan of care. Time Spent With Patient Time: Total time managing care of this patient today ____ minutes.
--- NOTE | 2023-02-22 10:39 | P.OP_ITS ---
Operative Note Operative Note Date of Service: 02/15/23 Narrative: Date of Service: 02/15/23 Pre-op diagnosis: Left hip OA Post-op diagnosis: same Procedure: Left MEGAN Implants: [place] Trident2 52 with lipped liner [place] Accolade2 127 deg #4 with -2.5 36 ceramic femoral head Surgeon: Benito Felton MD Anesthesia: GETA and local Was an Pelts Skinner used for this Procedure?: No Estimated blood loss (mL): 150 IV fluids (mL): 850 Pathology: other Condition: stable Disposition: PACU Procedure in detail: Patient was brought into the operating room and placed in the right lateral decubitus position. All bony prominences were well padded and the limb was prepped and draped in standard sterile fashion. A time-out was called to identify proper site procedure proper surgeon IV antibiotics and 1 g of transaxemic acid were administered. I began by making a curvilinear incision over the posterolateral aspect of the greater trochanter. Dissection was taken down to the tensor fascia which was incised in line with the incision and a Charnley retractor was placed. Cautery was used to maintain hemostasis. The hip was internally rotated and the external rotators were identified. The vessels were cauterized and a full-thickness capsular/external rotator layer was developed starting just proximal to the piriformis. This layer was tagged and a dull Hohmann retractor was placed underneath the neck in the hip was dislocated. The head was defromed and eburnated. A neck cut was made 1 cm proximal to the lesser trochanter and the head and neck were removed and measured ~48 mm on the back table. I then removed the labrum and cauterized the fovea. I started with a 44 reamer and medialized to the inner table. I sequentially reamed up to a size 52 and impacted a 52mm cup at 45 degrees of inclination and 25 degrees of version. I then placed a 20 deg posterior lipped liner and turned my attention to the femur. I identified the piriformis insertion and used this as a starting point for my lara cutter. The medius tendon was protected with a Hibs retractor. A Charnley awl was inserted in the canal and a curved curette used to remove the lateral bone. I irrigated copiously. I then sequentially broached in the patient's natural version to a size 5 and placed my trial implants. I used a #4/127/+0 based on my pre-operative template. Using a trail head I took the hip through range of motion and re-tiraled with a -2.5. I was satisfied with the stability with the -2.5. I removed all instrumentation and copiously irrigated. I placed my final femoral implant and again took the hip through range of motion and was satisfied with the stability and length. The final -2.5/36 implant was impacted in place and the hip reduced. I then irrigated for 3 minutes with iodine and placed 1 g of local transaxemic acid. I performed a capsular closure with 2.0 fiberwire, Amari's fascia with 0 Vicryl, subcuticular with 2-0 Vicryl and the skin with angela. Patient was placed into a sterile dressing. Patient was extubated brought to the recovery room in stable condition. There we re no known complications.
== END 2023-02-18 10:53 | disposition home health service (06) | DRG 470 ==
LOC: HO.SSSA 07:50 → HO.S3 12:51
PROVIDERS: Internal Medicine; Nurse Practitioner; Orthopaedic Surgery; Physician Assistant; Admitting Provider Physician Assistant; PCP Internal Medicine; Visit Provider Physician Assistant
PROC: 0SRB03A Replacement of Left Hip Joint with Ceramic Synthetic Substitute, Uncemented, Open Approach (ICD-10-PCS; CPT 27130; principal; 2023-02-15 09:40)
DX: M16.12 Unilateral primary osteoarthritis, left hip (principal); F11.20 Opioid dependence, uncomplicated; J44.9 Chronic obstructive pulmonary disease, unspecified; M81.0 Age-related osteoporosis without current pathological fracture; E78.00 Pure hypercholesterolemia, unspecified; G47.36 Sleep related hypoventilation in conditions classified elsewhere; Z85.118 Personal history of other malignant neoplasm of bronchus and lung; Z90.2 Acquired absence of lung [part of]; Z99.81 Dependence on supplemental oxygen; Z86.711 Personal history of pulmonary embolism; Z86.718 Personal history of other venous thrombosis and embolism; Z87.891 Personal history of nicotine dependence; Z79.01 Long term (current) use of anticoagulants; Z79.51 Long term (current) use of inhaled steroids; Z79.899 Other long term (current) drug therapy
CPT/HCPCS: 36415; 71045; 72170; 80048; 82565; 84484; 85014; 85018; 85025; 85610; 86850; 86900; 86901; 87640; 87641; 88304; 88311; 94640; 97110; 97116; 97162; 97166; 97530; 97535; C1776; J0131; J1170; J1650; J2405; J2795; J3010; J3371

== ENCOUNTER → 2023-03-03 12:26 | Outpatient (BNVA) | payer MEDICARE, MEDICAID, SELFPAY | PROVIDERS: PCP Internal Medicine; Visit Provider Physician Assistant | DX: Z47.1 Aftercare following joint replacement surgery (principal); Z96.642 Presence of left artificial hip joint | CPT/HCPCS: 99212 ==

== ENCOUNTER 2023-04-06 12:05 | Emergency (ER) | payer MEDICARE, MEDICAID, SELFPAY ==
[2023-04-06 12:41] VITALS: BP 134/80; PULSE 74; RESP 18; TEMP 36.8; O2SAT 93; BMI 36.0
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
== END 2023-04-06 15:26 | disposition home or self-care (01) ==
PROVIDERS: Emergency Provider Emergency Medicine; PCP Internal Medicine
DX: L03.116 Cellulitis of left lower limb (principal); R59.1 Generalized enlarged lymph nodes; Z96.642 Presence of left artificial hip joint; I10 Essential (primary) hypertension; E78.5 Hyperlipidemia, unspecified; F11.20 Opioid dependence, uncomplicated; C34.91 Malignant neoplasm of unspecified part of right bronchus or lung; J44.9 Chronic obstructive pulmonary disease, unspecified; Z99.81 Dependence on supplemental oxygen; Z96.641 Presence of right artificial hip joint; Z86.718 Personal history of other venous thrombosis and embolism; Z86.711 Personal history of pulmonary embolism; Z87.891 Personal history of nicotine dependence; Z79.899 Other long term (current) drug therapy; Z79.01 Long term (current) use of anticoagulants
CPT/HCPCS: 36415; 80053; 85025; 85610; 85730; 99283

== ENCOUNTER 2023-04-11 13:27 | Outpatient (AMB) | payer MEDICARE, MEDICAID, SELFPAY ==
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
[2023-04-11 13:32] VITALS: BMI 36.0
== END 2023-04-11 13:55 | disposition home or self-care (01) ==
PROVIDERS: PCP Internal Medicine; Visit Provider Physician Assistant
DX: Z96.642 Presence of left artificial hip joint (principal)
CPT/HCPCS: 99024

== ENCOUNTER → 2023-04-11 13:27 | Outpatient (BNVA) | payer MEDICARE, MEDICAID, SELFPAY | PROVIDERS: PCP Internal Medicine; Visit Provider Physician Assistant ==

== ENCOUNTER 2023-05-23 12:23 | Outpatient (REF) | payer MEDICARE, MEDICAID, SELFPAY ==
--- NOTE | ~2023-05-23 | XR_ITS ---
EXAMINATION: XR HIP, LEFT CLINICAL INFORMATION: Pain in left hip COMPARISON: 02/15/2023 TECHNIQUE: Two views of the left hip. FINDINGS: Patient is status post bilateral hips replacement with well positioned prosthesis. There is no evidence of fractures or joint effusion. Pelvic bones are normal. Soft tissues are unremarkable XR/XR hip LT min 2V IMPRESSION: Well-positioned left hip prosthesis.
== END 2023-05-23 12:24 | disposition home or self-care (01) ==
LOC: HO.HOSX 12:23
PROVIDERS: Visit Provider Orthopaedic Surgery
DX: M25.552 Pain in left hip (principal); K42.9 Umbilical hernia without obstruction or gangrene; Z96.642 Presence of left artificial hip joint
CPT/HCPCS: 73502

== ENCOUNTER 2023-05-23 12:27 | Outpatient (AMB) | payer MEDICARE, MEDICAID, SELFPAY ==
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
[2023-05-23 12:43] VITALS: BMI 36.0
== END 2023-05-23 12:56 | disposition home or self-care (01) ==
PROVIDERS: PCP Internal Medicine; Visit Provider Orthopaedic Surgery
DX: Z47.1 Aftercare following joint replacement surgery (principal); Z96.642 Presence of left artificial hip joint; K42.9 Umbilical hernia without obstruction or gangrene
CPT/HCPCS: 99213

== ENCOUNTER 2023-06-03 10:13 | Outpatient (AMB) | payer MEDICARE, MEDICAID, SELFPAY ==
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
[2023-06-03 10:31] VITALS: BP 142/71; PULSE 114; BMI 36.0
== END 2023-06-03 10:44 | disposition home or self-care (01) ==
PROVIDERS: PCP Internal Medicine; Visit Provider Surgery
DX: K44.9 Diaphragmatic hernia without obstruction or gangrene (principal); K21.9 Gastro-esophageal reflux disease without esophagitis
CPT/HCPCS: 99203

== ENCOUNTER → 2023-06-03 10:13 | Outpatient (BNVA) | payer MEDICARE, MEDICAID, SELFPAY | PROVIDERS: PCP Internal Medicine; Visit Provider Surgery ==

== ENCOUNTER 2023-08-04 12:04 | Outpatient (REF) | payer MEDICARE, MEDICAID, SELFPAY ==
[2023-08-04 14:52] LABS: TSH reflex Free T4 1.63 uIU/mL (0.32-4.0)
[2023-08-04 15:06] LABS: Folate 8.6 ng/mL (> or = 4.0); Vitamin B12 427 pg/mL (200-900)
[2023-08-05 21:13] LABS: Transglutaminase IgA <1.0 U/mL
[2023-08-08 16:03] LABS: Vitamin D 25-OH, D2 18 ng/mL; Vitamin D 25-OH, D3 7 ng/mL; Vitamin D 25-OH, Total 25 ng/mL (30-100)
== END 2023-08-04 12:05 | disposition home or self-care (01) ==
LOC: HO.LAB 12:04
PROVIDERS: PCP Internal Medicine; Visit Provider Nurse Practitioner Family
DX: R10.9 Unspecified abdominal pain (principal); K21.9 Gastro-esophageal reflux disease without esophagitis; K44.9 Diaphragmatic hernia without obstruction or gangrene; K59.01 Slow transit constipation; R19.7 Diarrhea, unspecified; E55.9 Vitamin D deficiency, unspecified
CPT/HCPCS: 36415; 82306; 82607; 82746; 84443; 86364; 99202

== ENCOUNTER 2023-08-04 12:04 | Outpatient (AMB) | payer MEDICARE, MEDICAID, SELFPAY ==
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
[2023-08-04 12:26] VITALS: BP 127/61; PULSE 88; BMI 34.5
== END 2023-08-04 12:52 | disposition home or self-care (01) ==
PROVIDERS: PCP Internal Medicine; Visit Provider Nurse Practitioner Family
DX: K44.9 Diaphragmatic hernia without obstruction or gangrene (principal); K21.9 Gastro-esophageal reflux disease without esophagitis; K59.01 Slow transit constipation
CPT/HCPCS: 99204